=== PATIENT | female | born 1990 | race Two or more races ===

== ENCOUNTER 2024-07-08 15:48 | Outpatient (REF) | payer OTHER, SELFPAY ==
[2024-07-08 16:12] LABS: Glucose CSF 62 mg/dL (40-70); Total Protein CSF 23 mg/dL (15-45)
[2024-07-08 16:20] LABS: Glucose CSF 62 mg/dL (40-70); Total Protein CSF 25 mg/dL (15-45)
[2024-07-08 18:10] LABS: CSF Clarity CLEAR (CLEAR); CSF Color COLORLESS (COLORLESS); CSF Tube # 2
[2024-07-08 18:11] LABS: CSF Total Volume 21.5 mL; Red Blood Cell CSF 6 cubic mm (0-0); Red Blood Cell CSF Side 1 7; Red Blood Cell CSF Side 2 5; White Blood Cell CSF 0 cubic mm (0-5); White Blood Cell CSF Side 1 0; White Blood Cell CSF Side 2 0
[2024-07-08 18:43] LABS: CSF Clarity CLEAR (CLEAR); CSF Color COLORLESS (COLORLESS); CSF Total Volume 21 mL; CSF Tube # 4; Red Blood Cell CSF 13 cubic mm (0-0); Red Blood Cell CSF Side 1 11; Red Blood Cell CSF Side 2 13; White Blood Cell CSF 0 cubic mm (0-5); White Blood Cell CSF Side 1 0; White Blood Cell CSF Side 2 0
== END 2024-07-08 15:49 | disposition home or self-care (01) ==
LOC: LAB 15:48
PROVIDERS: PCP Student in an Organized Health Care Education/Training Program; Visit Provider Psychiatry & Neurology Neurology
DX: G93.2 Benign intracranial hypertension (principal)
CPT/HCPCS: 36415; 82164; 82945; 84157; 86617; 87070; 87075; 87205; 89050